=== PATIENT | male | born 1945 | race Caucasian/White ===

== ENCOUNTER 2020-02-16 16:03 | Emergency (ER) | payer OTHER ==
[2020-02-16 16:52] LABS: Absolute Lymphocytes (CBC) 1.5 K/uL (0.7-4.9); Hematocrit 40.6 % (39.6-49.0); Lymphocytes % 11.4 % (15.3-44.8); RBC Red Blood Cell Count 4.44 M/uL (4.33-5.43)
[2020-02-16 17:04] LABS: BUN Blood Urea Nitrogen 20 mg/dL (7-18); Bicarbonate 28 mmol/L (21-32); Glucose Level 97 mg/dL (74-106); Potassium 4.1 mmol/L (3.5-5.1); Sodium Level 140 mmol/L (136-145); Troponin (Emerg Dept Use Only) < 0.02 ng/mL (0.0-0.045)
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
[2020-02-16] MEDS ORDERED: NA CHLORIDE 0.9% 0 ML ONE (18:31)
[2020-02-16 19:37] VITALS: TEMP 97
[2020-02-16 19:40] VITALS: BP 168/97; O2SAT 99
--- NOTE | 2020-02-17 07:52 | EKG ---
Test Date: 2020-02-16 Test Time: 16:30:30 Door And Arrival Attendant: MARILUZ MEASUREMENT RESULTS: Intervals: Rate: 74 HI: 192 QRSD: 76 QT: 402 QTc: 446 [place]: P: 64 HI: 192 QRS: 12 T: 68 INTERPRETIVE STATEMENTS: Normal sinus rhythm Normal ECG No previous ECG available for comparison Electronically Signed On 02-17-20 07:51:39 CDT by Byron Dempsey
== END 2020-02-16 19:32 | disposition home or self-care (01) ==
LOC: ER 16:03
DX: S80.812A Abrasion, left lower leg, initial encounter (principal); E16.2 Hypoglycemia, unspecified; V47.0XXA Car driver injured in collision with fixed or stationary object in nontraffic accident, initial encounter; Y93.89 Activity, other specified; Y92.410 Unspecified street and highway as the place of occurrence of the external cause; E11.9 Type 2 diabetes mellitus without complications; Z79.4 Long term (current) use of insulin; I10 Essential (primary) hypertension
CPT/HCPCS: 36415; 70450; 80048; 82947; 84484; 85025; 93005; 99284; J7040